=== PATIENT | female | born 1995 | race Caucasian/White ===

== ENCOUNTER 2019-01-24 10:11 | Emergency (ER) | payer OTHER ==
[~2019-01-24] VITALS: Ht 172.7 cm; Wt 83.9 kg
[2019-01-24] MEDS ORDERED: AMOX1TAB5 PO (10:23)
== END 2019-01-24 11:43 | disposition home or self-care (01) ==
LOC: ER 10:11
DX: R21 Rash and other nonspecific skin eruption (principal); T36.0X1A Poisoning by penicillins, accidental (unintentional), initial encounter; L27.0 Generalized skin eruption due to drugs and medicaments taken internally; Y92.89 Other specified places as the place of occurrence of the external cause